=== PATIENT | female | born 1965 | race Caucasian/White ===

== ENCOUNTER 2017-05-06 12:36 | Emergency (ER) | payer OTHER ==
[2017-05-06 13:00] VITALS: TEMP 100.7
[2017-05-06] MEDS ORDERED: ACETAMINOPHEN TAB 500 MG TAB PO STA (13:13)
--- NOTE | 2017-05-06 13:19 | ED ---
General Adult HPI - General Chief complaint: Upper Respiratory Infection Stated complaint: Poss Pneumonia, Cannot eat Time Seen by Provider: 05/06/17 13:07 Source: patient Mode of arrival: ambulatory Limitations: no limitations - History of Present Illness Initial comments: Patient is a 51-year-old nonsmoker who presents to the emergency department today for evaluation of productive cough, pleuritic chest pain and fever. Patient reports that on Sunday she began having a cough, she reports after eating dinner on that day she had a violent coughing spell which caused her to vomit. She reports that since that time she's been experiencing right-sided pleuritic chest pain that is worse with inspiration, movement or eating. She reports the cough has been minimally productive. She reports subjective chills but had not checked her temperature at home though when she arrived in the emergency department she was advised that she did have a fever of 100.7. She reports that she tried a single dose of fpum-paf-fuhzduv cough medicine yesterday with no improvement in her symptoms. MD Complaint: Cough Onset/Timin -: days(s) Quality: sharp Consistency: intermittent Associated Symptoms: chest pain, cough, fever/chills, loss of appetite, nausea/ vomiting Treatments Prior to Arrival: none - Related Data Home Medications Medication Instructions Recorded Confirmed Budesonide/Formoterol Fumarate 2 puff INHALATION RT-BID 05/06/17 05/06/17 [Symbicort 160-4.5 Mcg Inhaler] Ibuprofen [Motrin] 800 mg PO TID PRN 05/06/17 05/06/17 Previous Rx's Medication Instructions Recorded Ibuprofen [Motrin] 800 mg PO TID #60 tab 05/06/17 Omeprazole 20 mg PO DAILY #30 cap 05/06/17 Sucralfate [Carafate] 1 gm PO ACHS #150 ml 05/06/17 Allergies Allergy/AdvReac Type Severity Reaction Status Date / Time colistimethate sodium Allergy rash to Verified 05/06/17 13:32 [From Coly-Mycin M] face from ear drops Patient : No Review of Systems ROS Statement: Those systems with pertinent positive or pertinent negative responses have been documented in the HPI. ROS Other: All systems not noted in ROS Statement are negative. Constitutional: Reports: fever, chills Eyes: Denies: eye pain ENT: Reports: ear pain, throat pain Respiratory: Reports: cough. Denies: dyspnea, wheezes, hemoptysis, stridor Cardiovascular: Reports: chest pain. Denies: palpitations, dyspnea on exertion , orthopnea, edema, syncope Endocrine: Reports: fatigue Gastrointestinal: Reports: nausea, vomiting. Denies: abdominal pain Genitourinary: Denies: urgency, dysuria Musculoskeletal: Reports: back pain Skin: Denies: rash, lesions Neurological: Denies: headache, weakness Psychiatric: Denies: anxiety, depression Hematological/Lymphatic: Denies: easy bleeding, easy bruising Past Medical History Past Medical History: Asthma Additional Past Medical History / Comment(s): pos occult stool History of Any Multi-Drug Resistant Organisms: None Reported Additional Past Surgical History / Comment(s): NO MAJOR SURGERIES REPORTED Past Anesthesia/Blood Transfusion Reactions: No Reported Reaction Past Psychological History: No Psychological Hx Reported Smoking Status: Never smoker Past Alcohol Use History: None Reported Past Drug Use History: None Reported General Exam Limitations: no limitations General appearance: alert, in no apparent distress Head exam: Present: atraumatic, normocephalic Eye exam: Present: normal appearance, PERRL Neck exam: Present: normal inspection. Absent: tenderness Respiratory exam: Present: decreased breath sounds. Absent: respiratory distress, wheezes Cardiovascular Exam: Present: normal rhythm, tachycardia GI/Abdominal exam: Present: soft. Absent: distended, tenderness, guarding Rectal exam: Present: deferred Extremities exam: Present: normal inspection, full ROM, normal capillary refill Back exam: Present: normal inspection, full ROM Neurological exam: Present: alert, oriented X3 Psychiatric exam: Present: normal affect, normal mood Skin exam: Present: warm, dry Course Vital Signs 05/06/17 05/06/17 05/06/17 12:57 13:42 14:57 Temperature 100.7 F H Pulse Rate 107 H Respiratory 18 22 20 Rate Blood Pressure 138/60 O2 Sat by Pulse 98 Oximetry 05/06/17 05/06/17 16:00 17:04 Temperature 100.7 F H Pulse Rate 84 84 Respiratory 20 20 Rate Blood Pressure 132/60 132/60 O2 Sat by Pulse 97 97 Oximetry - Reevaluation(s) Reevaluation #1: She was reevaluated, is sitting comfortably in the ER bed. Patient was updated on findings and plan for CT angiogram, patient states no known ALLERGIES to IV contrast. 10/15/17 15:41 Reevaluation #2: Patient reevaluated, again resting comfortably. She was updated on CT findings and expresses relief 05/06/17 16:23 EKG Findings - EKG Comments: EKG Findings:: EKG at 1:50 PM - rate 83, rhythm normal sinus, vital axis, normal intervals, no acute ST elevations or depressions. No evidence of acute ischemia or infarction. Medical Decision Making - Medical Decision Making Patient was seen and evaluated, history is obtained from the patient and at bedside Vital signs were reviewed, noted to be febrile and tachycardic A septic workup was ordered Tylenol was ordered for fever Labs revealed an elevated d-dimer, CT pulmonary embolism study was ordered CT pulmonary embolism study revealed no acute pulmonary embolus him, no acute pathology in the lungs or chest Results were discussed with the patient. Patient expressed concern about nausea and some burning epigastric pain when she, I advised her that I will discharge her home with omeprazole as well as Carafate. Advised her that she needs follow-up with her primary care physician for this. Advised the patient that I will prescribe her Carafate suspension, however her insurance does not cover this and it will be very expensive have the pharmacy called me back and I will prescribe Carafate tablets as these will likely be more cost effective. All questions pertaining to care were answered to the best of my ability and the patient was discharged home in stable condition with diagnosis of pleuritic chest pain and GERD. I received a call from the patient's pharmacy, patient's insurance does not cover Carafate suspension. Patient's prescription was changed to Carafate tablets. - Lab Data Result diagrams: 05/06/17 13:35 05/06/17 13:35 Lab Results 05/06/17 05/06/17 05/06/17 Range/Units 13:35 13:35 13:35 WBC 7.9 (3.8-10.6) k/uL RBC 5.08 (3.80-5.40) m/uL Hgb 14.1 (11.4-16.0) gm/dL Hct 43.5 (34.0-46.0) % MCV 85.8 (80.0-100.0) fL MCH 27.8 (25.0-35.0) pg MCHC 32.4 (31.0-37.0) g/dL RDW 12.6 (11.5-15.5) % Plt Count 235 (150-450) k/uL Neutrophils % 75 % Lymphocytes % 14 % Monocytes % 5 % Eosinophils % 2 % Basophils % 0 % Neutrophils # 6.0 (1.3-7.7) k/uL Lymphocytes # 1.1 (1.0-4.8) k/uL Monocytes # 0.4 (0-1.0) k/uL Eosinophils # 0.2 (0-0.7) k/uL Basophils # 0.0 (0-0.2) k/uL PT (9.0-12.0) sec INR (<1.2) APTT (22.0-30.0) sec D-Dimer (<0.60) mg/L FEU Sodium 141 (137-145) mmol/L Potassium 4.2 (3.5-5.1) mmol/L Chloride 105 (98-107) mmol/L Carbon Dioxide 23 (22-30) mmol/L Anion Gap 13 mmol/L BUN 11 (7-17) mg/dL Creatinine 0.70 (0.52-1.04) mg/dL Est GFR (MDRD) Af Amer >60 (>60 ml/min/1.73 sqM) Est GFR (MDRD) Non-Af >60 (>60 ml/min/1.73 sqM) Glucose 100 H (74-99) mg/dL Plasma Lactic Acid Holland 1.2 (0.7-2.0) mmol/L Calcium 10.1 (8.4-10.2) mg/dL Total Bilirubin 0.5 (0.2-1.3) mg/dL AST 29 (14-36) U/L ALT 51 (9-52) U/L Alkaline Phosphatase 119 (38-126) U/L Troponin I (0.000-0.034) ng/mL Total Protein 7.0 (6.3-8.2) g/dL Albumin 4.2 (3.5-5.0) g/dL 05/06/17 05/06/17 05/06/17 Range/Units 13:35 13:35 13:35 WBC (3.8-10.6) k/uL RBC (3.80-5.40) m/uL Hgb (11.4-16.0) gm/dL Hct (34.0-46.0) % MCV (80.0-100.0) fL MCH (25.0-35.0) pg MCHC (31.0-37.0) g/dL RDW (11.5-15.5) % Plt Count (150-450) k/uL Neutrophils % % Lymphocytes % % Monocytes % % Eosinophils % % Basophils % % Neutrophils # (1.3-7.7) k/uL Lymphocytes # (1.0-4.8) k/uL Monocytes # (0-1.0) k/uL Eosinophils # (0-0.7) k/uL Basophils # (0-0.2) k/uL PT 10.4 (9.0-12.0) sec INR 1.0 (<1.2) APTT 22.4 (22.0-30.0) sec D-Dimer 0.62 H (<0.60) mg/L FEU Sodium (137-145) mmol/L Potassium (3.5-5.1) mmol/L Chloride (98-107) mmol/L Carbon Dioxide (22-30) mmol/L Anion Gap mmol/L BUN (7-17) mg/dL Creatinine (0.52-1.04) mg/dL Est GFR (MDRD) Af Amer (>60 ml/min/1.73 sqM) Est GFR (MDRD) Non-Af (>60 ml/min/1.73 sqM) Glucose (74-99) mg/dL Plasma Lactic Acid Holland (0.7-2.0) mmol/L Calcium (8.4-10.2) mg/dL Total Bilirubin (0.2-1.3) mg/dL AST (14-36) U/L ALT (9-52) U/L Alkaline Phosphatase (38-126) U/L Troponin I <0.012 (0.000-0.034) ng/mL Total Protein (6.3-8.2) g/dL Albumin (3.5-5.0) g/dL Disposition Clinical Impression: Pleuritic chest pain, Cough, GERD (gastroesophageal reflux disease) Disposition: HOME SELF-CARE Condition: Good Instructions: Upper Respiratory Infection (ED) Prescriptions: Ibuprofen [Motrin] 800 mg PO TID #60 tab Omeprazole 20 mg PO DAILY #30 cap Sucralfate [Carafate] 1 gm PO ACHS #150 ml Referrals: Asaf Correa DO [Primary Care Provider] - 1-2 days Time of Disposition: 16:25
[2017-05-06] MEDS: SODIUM CHLORIDE 0.9% 500 ML IV SCH ×2 (13:39→16:15)
[2017-05-06 13:50] LABS: Basophils % (A) 0 %; CHCM 32.8; Eosinophils # (A) 0.2 k/uL (0-0.7); Eosinophils % (A) 2 %; HCT 43.5 % (34.0-46.0); HGB 14.1 gm/dL (11.4-16.0); Luc % (Auto) 3; Lymphocytes # (A) 1.1 k/uL (1.0-4.8); Lymphocytes % (A) 14 %; MCH 27.8 pg (25.0-35.0); MCHC 32.4 g/dL (31.0-37.0); MCV 85.8 fL (80.0-100.0); Monocytes # (A) 0.4 k/uL (0-1.0); Monocytes % (A) 5 %; Neutrophils % (A) 75 %; RBC 5.08 m/uL (3.80-5.40); RDW 12.6 % (11.5-15.5); WBC 7.9 k/uL (3.8-10.6); WBC (Perox) 7.72
[2017-05-06 13:59] LABS: Prothrombin Time 10.4 sec (9.0-12.0)
[2017-05-06 14:00] LABS: ALT 51 U/L (9-52); AST 29 U/L (14-36); Alkaline Phosphatase 119 U/L (38-126); Anion Gap 13 mmol/L; Blood Urea Nitrogen 11 mg/dL (7-17); Calcium 10.1 mg/dL (8.4-10.2); Carbon Dioxide 23 mmol/L (22-30); Chloride 105 mmol/L (98-107); Glucose 100 mg/dL (74-99); Non-African American GFR(MDRD) >60 (>60 ml/min/1.73 sqM); Potassium 4.2 mmol/L (3.5-5.1); Sodium 141 mmol/L (137-145); Total Bilirubin 0.5 mg/dL (0.2-1.3)
[2017-05-06 14:06] LABS: Partial Thromboplastin Time 22.4 sec (22.0-30.0)
--- NOTE | 2017-05-06 14:32 | XR ---
EXAMINATION TYPE: XR chest 2V DATE OF EXAM: 05/06/2017 COMPARISON: Chest x-ray July 24, 2015 HISTORY: Fever, cough, and congestion TECHNIQUE: Frontal and lateral views of the chest are obtained. FINDINGS: There is no focal air space opacity, pleural effusion, or pneumothorax seen. The cardiac silhouette size is stable and upper limits of normal. The osseous structures are intact. IMPRESSION: No acute pulmonary process. No significant change from prior.
[2017-05-06 14:58] VITALS: RESP 20
[2017-05-06] MEDS ORDERED: RX INFO: IV CONTRAST WAS GIVEN 1 EACH MISC MISCELLANE PRN (15:39)
--- NOTE | 2017-05-06 16:10 | CT ---
EXAMINATION TYPE: CT angio chest DATE OF EXAM: 05/06/2017 COMPARISON: NONE HISTORY: cough/sob/elevated d dimer CT DLP: 158.40 mGycm. Automated Exposure Control for Dose Reduction was Utilized. CONTRAST: CTA scan of the thorax is performed with IV Contrast, patient injected with 100 mL of Omnipaque 350, pulmonary embolism protocol. MIP Images are created on CT scanner and reviewed. FINDINGS: LUNGS: There is mild underlying emphysematous change. There is mild biapical scarring. There is no rivera spicious groundglass opacity or consolidation. No concerning parenchymal nodule or mass is present bi laterally. No pleural effusion or pneumothorax is seen. MEDIASTINUM: There is satisfactory enhancement of the pulmonary artery and its branches, there is no CT evidence for pulmonary embolism. There are no greater than 1 cm hilar or mediastinal lymph nodes. No cardiomegaly or pericardial effusion is seen. OTHER: No additional significant abnormality is seen. IMPRESSION: No CT evidence for pulmonary embolism. No acute pulmonary process identified.
[2017-05-06 16:18] VITALS: BP 132/60; PULSE 84
== END 2017-05-06 17:04 | disposition home or self-care (01) ==
LOC: EC 12:36
DX: K21.9 Gastro-esophageal reflux disease without esophagitis (principal); J45.909 Unspecified asthma, uncomplicated; R00.0 Tachycardia, unspecified; R63.0 Anorexia; R11.2 Nausea with vomiting, unspecified; Z79.51 Long term (current) use of inhaled steroids; Z88.8 Allergy status to other drugs, medicaments and biological substances
CPT/HCPCS: 99284 ×2; 96360 ×2; 36415; 93005; 85379; 80053; 83605; 84484; 85025; 85610; 85730; 87040; 71020; 71275; Q9967

== ENCOUNTER → 2019-02-24 | Outpatient (CLI) | payer OTHER ==
--- NOTE | 2019-02-25 08:21 | MM ---
Reason for exam: screening (asymptomatic). Last mammogram was performed 2 years and 8 months ago. History: Patient is postmenopausal and is nulliparous. Family history of breast cancer in mother at age 58. Took hormonal contraceptives for 11 years beginning at age 18. Physical Findings: A clinical breast exam by your physician is recommended on an annual basis and results should be correlated with mammographic findings. MG 3D Screening Mammo W/Cad Bilateral CC and MLO view(s) were taken. Prior study comparison: July 04, 2016, bilateral MG screening mammo w CAD. November 28, 2013, bilateral MG screening mammo w CAD. The breast tissue is heterogeneously dense. This may lower the sensitivity of mammography. No suspicious abnormality. No significant changes when compared with prior studies. ASSESSMENT: Negative, BI-RAD 1 RECOMMENDATION: Routine screening mammogram of both breasts in 1 year.
== END | disposition home or self-care (01) ==
LOC: RADMAMWWP 10:00
PROVIDERS: ATTEND Family Medicine
DX: Z12.31 Encounter for screening mammogram for malignant neoplasm of breast (principal)
CPT/HCPCS: 77063; 77067

== ENCOUNTER → 2019-10-01 | Outpatient (CLI) | payer OTHER ==
--- NOTE | 2019-10-01 11:37 | XR ---
Right hip HISTORY: Right hip pain for 1 month 2 views of the right hip Bone mineralization and alignment are maintained. Phleboliths are noted in the right hemipelvis. No f racture or dislocation. Questionable chondrocalcinosis, concentric joint space narrowing. IMPRESSION: Questionable chondrocalcinosis, consider crystal deposition arthropathy.
== END | disposition home or self-care (01) ==
LOC: RADXRMAIN 10:34
PROVIDERS: ATTEND Family Medicine
DX: M25.551 Pain in right hip (principal)
CPT/HCPCS: 73502

== ENCOUNTER → 2021-01-03 | Outpatient (CLI) | payer OTHER ==
--- NOTE | 2021-01-05 13:55 | MM ---
Reason for exam: screening (asymptomatic). Last mammogram was performed 1 year and 10 months ago. History: Patient is postmenopausal and is nulliparous. Family history of breast cancer in mother at age 58. Took hormonal contraceptives for 11 years beginning at age 18. Physical Findings: A clinical breast exam by your physician is recommended on an annual basis and results should be correlated with mammographic findings. MG Screening Mammo w CAD Bilateral CC and MLO view(s) were taken. Prior study comparison: February 24, 2019, bilateral MG 3d screening mammo w/cad. July 04, 2016, bilateral MG screening mammo w CAD. There are scattered fibroglandular densities. ASSESSMENT: Negative, BI-RAD 1 RECOMMENDATION: Routine screening mammogram of both breasts in 1 year.
== END | disposition home or self-care (01) ==
LOC: RADMAMWWP 09:39
PROVIDERS: ATTEND Family Medicine
DX: Z12.31 Encounter for screening mammogram for malignant neoplasm of breast (principal); Z78.0 Asymptomatic menopausal state; Z80.3 Family history of malignant neoplasm of breast
CPT/HCPCS: 77067

== ENCOUNTER → 2021-03-16 | Outpatient (CLI) | payer OTHER ==
--- NOTE | 2021-03-16 15:43 | XR ---
Right finger HISTORY: Swelling right index finger, M15.1 3 views of the second digit of the right hand Bone mineralization, alignment are maintained. There is some mild loss of joint space at the distal i nterphalangeal joint with some marginal spurring. Soft tissue swelling is noted. No evident erosion. Some hyperextension noted at the proximal interphalangeal joint. IMPRESSION: Osteoarthritis
== END | disposition home or self-care (01) ==
LOC: RADXRMAIN 11:11
PROVIDERS: ATTEND Family Medicine
DX: M19.041 Primary osteoarthritis, right hand (principal)

== ENCOUNTER → 2022-01-20 | Outpatient (CLI) | payer OTHER ==
--- NOTE | 2022-01-24 18:18 | MM ---
Reason for Exam: Screening (asymptomatic). Last mammogram was performed 1 year(s) and 1 month(s) ago. Patient History: Menarche at age 12. Patient has no children. Postmenopausal. Hormonal Contraceptives for 11 years from age 18 until age 46. Mother had breast cancer, age 58. Risk Values: Ramila 5 year model risk: 2.4%. NCI Lifetime model risk: 15.2%. Prior Study Comparison: 07/04/2016 Bilateral Screening Mammogram, [facility]. 02/24/2019 Bilateral Screening Mammogram, [facility]. 01/03/2021 Bilateral Screening Mammogram, [facility]. Tissue Density: There are scattered fibroglandular densities. Findings: Analyzed By CAD. Chronic isodense to low density nodularity on both sides. No significant change from prior exams. Overall Assessment: Benign, BI-RAD 2 Management: Screening Mammogram of both breasts in 1 year. 1. Patient should continue monthly self breast exams. 2. A clinical breast exam by your physician is recommended on an annual basis. 3. This exam should not preclude additional follow-up of suspicious palpable abnormalities. Electronically signed and approved by: Kalyani Bonner M.D. Radiologist
== END | disposition home or self-care (01) ==
LOC: RADMAMWWP 08:23
PROVIDERS: ATTEND Family Medicine
DX: Z12.31 Encounter for screening mammogram for malignant neoplasm of breast (principal); Z78.0 Asymptomatic menopausal state; Z80.3 Family history of malignant neoplasm of breast
CPT/HCPCS: 77067

== ENCOUNTER 2022-06-17 09:05 | Emergency (ER) | payer OTHER ==
[2022-06-17] MEDS ORDERED: IPRATROPIUM-ALBUTEROL 3 ML NEB INHALATION STA (09:19)
[2022-06-17] MEDS ORDERED: BENZONATATE 100 MG CAP PO STA (09:19)
[2022-06-17] MEDS ORDERED: DEXAMETHASONE SOD PHOSPHATE 10 MG/ML 1 ML VIAL IM STA (09:19)
--- NOTE | 2022-06-17 09:41 | XR ---
EXAMINATION TYPE: XR chest 2V DATE OF EXAM: 06/17/2022 COMPARISON: 05/06/2017 HISTORY: Cough and shortness of breath TECHNIQUE: Frontal and lateral views of the chest are obtained. FINDINGS: There is no focal air space opacity, pleural effusion, or pneumothorax seen. The cardiac silhouette size is within normal limits. The osseous structures are intact. IMPRESSION: No acute cardiopulmonary process.
--- NOTE | 2022-06-17 10:20 | ED ---
URI HPI - General Chief Complaint: Upper Respiratory Infection Stated Complaint: Chest Cold Time Seen by Provider: 06/17/22 09:08 Source: patient, family, RN notes reviewed Mode of arrival: ambulatory Limitations: no limitations - History of Present Illness Initial Comments: This is a 56-year-old female who presents to the emergency department for coughi ng and congestion. Symptoms have been present for 3-4 days. States that she feels like the congestion is moving into her lungs, making it somewhat more difficult to breathe. She does have a history of asthma and is using Atrovent with minor relief. Denies any sick contacts. Her largest problem is her cough, which is keeping her awake at night. She has tried various [id number] cough medications, which have been ineffective. Denies any fevers, chills, sore throat, chest pain, palpitations, abdominal pain, nausea, vomiting, diarrhea, back pain, or headaches. MD Complaint: cough, nasal congestion Onset/Timin -: days(s) Associated Symptoms: shortness of breath Treatments Prior to Arrival: "cold medicine" - Related Data Home Medications Medication Instructions Recorded Confirmed Budesonide/Formoterol Fumarate 2 puff INHALATION RT-BID 05/06/17 05/06/17 [Symbicort 160-4.5 Mcg Inhaler] Ibuprofen [Motrin] 800 mg PO TID PRN 05/06/17 05/06/17 Previous Rx's Medication Instructions Recorded Ibuprofen [Motrin] 800 mg PO TID #60 tab 05/06/17 Omeprazole 20 mg PO DAILY #30 cap 05/06/17 Sucralfate [Carafate] 1 gm PO ACHS #150 ml 05/06/17 Azithromycin [Zithromax] 250 mg PO DIRECTED 5 Days #6 tab 06/17/22 Promethazine/Dextromethorphan 5 ml PO QID PRN #473 ml 06/17/22 [Promethazine-Dm Syrup] predniSONE 50 mg PO DAILY 5 Days #5 tablet 06/17/22 Allergies Allergy/AdvReac Type Severity Reaction Status Date / Time colistimethate sodium Allergy rash to Verified 06/17/22 09:09 [From Coly-Mycin M] face from ear drops Review of Systems ROS Statement: Those systems with pertinent positive or pertinent negative responses have been documented in the HPI. ROS Other: All systems not noted in ROS Statement are negative. Past Medical History Past Medical History: Asthma Additional Past Medical History / Comment(s): pos occult stool History of Any Multi-Drug Resistant Organisms: None Reported Additional Past Surgical History / Comment(s): NO MAJOR SURGERIES REPORTED Past Anesthesia/Blood Transfusion Reactions: No Reported Reaction Past Psychological History: No Psychological Hx Reported Smoking Status: Never smoker Past Alcohol Use History: None Reported Past Drug Use History: None Reported General Exam Limitations: no limitations General appearance: alert, in no apparent distress Head exam: Present: atraumatic, normocephalic, normal inspection Respiratory exam: Present: decreased breath sounds, other (Course breath sounds bilaterally) Cardiovascular Exam: Present: normal rhythm, tachycardia Neurological exam: Present: alert, oriented X3, CN II-XII intact Psychiatric exam: Present: normal affect, normal mood Skin exam: Present: warm, dry, intact, normal color. Absent: rash Course Vital Signs 06/17/22 06/17/22 06/17/22 09:07 10:41 10:52 Temperature 97.8 F Pulse Rate 101 H 100 100 Respiratory 18 Rate Blood Pressure 143/79 O2 Sat by Pulse 95 Oximetry Medical Decision Making - Medical Decision Making This is a 56-year-old female who presents to the emergency department for coughing and congestion. Chest x-ray obtained, and on my interpretation I identify no signs of infiltrates or consolidations. COVID and influenza testing were negative. She was given a dose of IM Decadron, Tessalon Perles, and a DuoNeb breathing treatment. She did note the DuoNeb treatment to be helpful. Prescription for 5 day course of prednisone, a Z-Phillip, and promethazine DM cough syrup provided. Dosing instructions reviewed. Advised that the cough syrup can be sedating and is best taken at night. She was also instructed to avoid driving or operating machinery when taking this. Instructed her to remain well- hydrated, get plenty of rest, and continue taking her asthma medication as prescribed. Return precautions reviewed in depth, the patient is instructed to return to the emergency department with any new, worsening, or concerning symptoms. Patient verbalized understanding. This case was discussed in detail with the attending ED physician. Presentation, findings, and treatment plan discussed in detail as well. - Lab Data Lab Results 06/17/22 06/17/22 Range/Units 09:30 09:30 Coronavirus (PCR) Not Detected (Not Detectd) Influenza Type A RNA Not Detected (Not Detectd) Influenza Type B (PCR) Not Detected (Not Detectd) - Radiology Data Radiology results: report reviewed, image reviewed Disposition Clinical Impression: Asthmatic bronchitis Disposition: HOME SELF-CARE Instructions (If sedation given, give patient instructions): Acute Bronchitis (ED) Additional Instructions: Return to the emergency department with any new, worsening, or concerning sym ptoms. Take the prednisone daily for 5 days and the Z-Phillip as prescribed for 5 days. You can use the cough syrup up to 4 times daily as needed, however be aware that this can be sedating and you should avoid driving or operating machinery when taking this. Continue to remain well-hydrated and use your asthma medication as prescribed. Follow up with your primary care provider in 1-2 days. Prescriptions: predniSONE 50 mg PO DAILY 5 Days #5 tablet Promethazine/Dextromethorphan [Promethazine-Dm Syrup] 5 ml PO QID PRN #473 ml PRN Reason: Cough Azithromycin [Zithromax] 250 mg PO DIRECTED 5 Days #6 tab Is patient prescribed a controlled substance at d/c from ED?: No Referrals: Asaf Correa DO [Primary Care Provider] - 1-2 days
[2022-06-17 11:45] VITALS: RESP 20
[2022-06-17 11:47] VITALS: BP 112/68; PULSE 88; TEMP 98.6
== END 2022-06-17 11:10 | disposition home or self-care (01) ==
LOC: EC 09:05
DX: J45.909 Unspecified asthma, uncomplicated (principal); Z20.822 Contact with and (suspected) exposure to COVID-19; Z88.1 Allergy status to other antibiotic agents
CPT/HCPCS: 94640; 87502; 87635; 71046; 99284; 96372; J1100

== ENCOUNTER → 2023-04-25 | Outpatient (CLI) | payer OTHER ==
--- NOTE | 2023-04-26 20:35 | MM ---
Reason for Exam: Screening (asymptomatic). Last mammogram was performed 1 year(s) and 3 month(s) ago. Patient History: Menarche at age 12. Patient has no children. Postmenopausal. Hormonal Contraceptives for 11 years from age 18 until age 46. Mother had breast cancer, age 58. Risk Values: Ramila 5 year model risk: 2.5%. NCI Lifetime model risk: 14.9%. Prior Study Comparison: 02/24/2019 Bilateral Screening Mammogram, [facility]. 01/03/2021 Bilateral Screening Mammogram, [facility]. 01/20/2022 Bilateral MG screening mammo w CAD, [facility]. Tissue Density: The breast tissue is heterogeneously dense. This may lower the sensitivity of mammography. Findings: Analyzed By CAD. There is bilateral chronic nodularity and unchanged areas of bilateral asymmetric densities. There is no suspicious group of microcalcifications or new suspicious mass in either breast. Overall Assessment: Benign, BI-RAD 2 Management: Screening Mammogram of both breasts in 1 year. . Patient should continue monthly self-breast exams. A clinical breast exam by your physician is recommended on an annual basis. This exam should not preclude additional follow-up of suspicious palpable abnormalities. Note on Ramila scores and lifetime risk: 1. A Ramila score greater than 3% is considered moderate risk. If this is the case, consider specialist referral to assess eligibility for a risk reducing agent. 2. If overall lifetime risk for the development of breast cancer is 20% or higher, the patient may qualify for future screening with alternating mammogram and breast MRI. Electronically signed and approved by: Kalyani Bonner M.D. Radiologist
== END | disposition home or self-care (01) ==
LOC: RADMAMWWP 11:29
PROVIDERS: ATTEND Family Medicine
DX: Z12.31 Encounter for screening mammogram for malignant neoplasm of breast (principal); Z78.0 Asymptomatic menopausal state; Z80.3 Family history of malignant neoplasm of breast
CPT/HCPCS: 77067

== ENCOUNTER → 2024-05-16 | Outpatient (CLI) | payer OTHER ==
--- NOTE | 2024-05-19 14:09 | MM ---
Reason for Exam: Screening (asymptomatic). Last screening mammogram was performed 12 month(s) ago. Patient History: Menarche at age 12. Patient has no children. Postmenopausal. Hormonal Contraceptives for 11 years from age 18 until age 46. Mother had breast cancer, age 58. Risk Values: Ramila 5 year model risk: 2.6%. NCI Lifetime model risk: 14.6%. Prior Study Comparison: 01/03/2021 Bilateral Screening Mammogram, [facility]. 01/20/2022 Bilateral MG screening mammo w CAD, [facility]. 04/25/2023 Bilateral MG screening mammo w CAD, [facility]. Tissue Density: There are scattered areas of fibroglandular density. Findings: Analyzed By CAD. Right breast: There is no suspicious group of microcalcifications or new suspicious mass. Left breast: There is no suspicious group of microcalcifications or new suspicious mass. Overall Assessment: Negative, BI-RAD 1 Management: Screening Mammogram of both breasts in [address] [facility] will attempt to contact patient to return for supplemental views and ultrasound if indicated. Patient should continue monthly self-breast exams. A clinical breast exam by your physician is recommended on an annual basis. This exam should not preclude additional follow-up of suspicious palpable abnormalities. Note on Ramila scores and lifetime risk: 1. A Ramila score greater than 3% is considered moderate risk. If this is the case, consider specialist referral to assess eligibility for a risk reducing agent. 2. If overall lifetime risk for the development of breast cancer is 20% or higher, the patient may qualify for future screening with alternating mammogram and breast MRI. [facility], , 05/19/2024 2:06 PM. Electronically signed and approved by: Bubba Lindo DO
== END | disposition home or self-care (01) ==
LOC: RADMAMWWP 09:56
PROVIDERS: ATTEND Family Medicine
CPT/HCPCS: 77063; 77067